=== PATIENT | male | born 1940 | race Caucasian/White ===

== ENCOUNTER 2017-07-20 17:45 | Emergency (ER) | payer SELFPAY ==
[~2017-07-20] VITALS: Ht 177.8 cm; Wt 74.0 kg
[2017-07-20 17:51] VITALS: BP 128/66; PULSE 81; RESP 20; TEMP 97.7; O2SAT 98
[2017-07-20 18:58] LABS: BACTERIA, URINE RARE /hpf; BILIRUBIN, URINE NEG (NEG); BLOOD, URINE SMALL (NEG); GLUCOSE,URINE NEG (NEG); KETONE, URINE NEG (NEG); NITRITE,URINE NEG (NEG); PH, URINE 5.5 (5.0-8.5); URINE COLOR YELLOW (YELLW/STRAW); URINE LEUKOCYTE ESTERASE LARGE (NEG)
[2017-07-20] MEDS ORDERED: AZITHROMYCIN PWD FOR SUSP 1 GM PACKET PO ONE (19:15)
[2017-07-20] MEDS ORDERED: LIDOCAINE HCL 1% PF 30 ML VIAL XX ONE (19:15)
--- NOTE | 2017-07-20 19:18 | PD ---
HPI Chief Complaint: Complaint Time Seen by Provider: 18:28 Travel History International Travel<30 days: No Contact w/Intl Traveler<30days: No Traveled to known affect area: No History of Present Illness HPI This patient complains of urethral discharge and urinary frequency and urethral irritation. He has history of gonorrhea. Duration is 3 days. Severity is moderate. No fever PFSH Social History Alcohol Use: No Tobacco Use: Yes Substance Use: No Allergies-Medications (Allergen,Severity, Reaction): Coded Allergies: No Known Drug Allergies (Verified Allergy, Unknown, 07/20/17) Reported Meds & Prescriptions Reported Meds & Active Scripts Active Active Prescriptions or Reported Medications Unobtainable Review of Systems General / Constitutional: No: Fever HENT: No: Headaches Cardiovascular: No: Chest Pain or Discomfort Respiratory: No: Cough Physical Exam Narrative GASTROINTESTINAL: Abdomen soft, non-tender, nondistended. Positive bowel sounds. No hepato-splenomegaly, or palpable masses. No guarding. SKIN: Focused skin assessment reveals no rash or ulcers. Skin is warm and dry. Palpation shows no induration or nodules. : No lesions seen. He does have yellow urethral discharge. Data Data Last Documented VS Vital Signs Date Time Temp Pulse Resp B/P (MAP) Pulse Ox O2 Delivery O2 Flow Rate FiO2 07/20/17 17:51 97.7 81 20 128/66 (86) 98 Orders Orders Urinalysis - C+S If Indicated (07/20/17 18:11) Urine Culture (07/20/17 18:00) Gc And Chlamydia Pcr (07/20/17 19:13) Ceftriaxone Inj (Rocephin Inj) (07/20/17 19:15) Lidocaine Pf 1% Inj (Xylocaine-Mpf 1% In (07/20/17 19:15) Azithromycin Powd Pack (Zithromax Powd P (07/20/17 19:15) Labs Laboratory Tests Test 07/20/17 18:00 Urine Color YELLOW Urine Turbidity HAZY Urine pH 5.5 Urine Specific [place] 1.012 Urine Protein TRACE mg/dL Urine Glucose (UA) NEG mg/dL Urine Ketones NEG mg/dL Urine Occult Blood SMALL Urine Nitrite NEG Urine Bilirubin NEG Urine Urobilinogen 2.0 MG/DL Urine Leukocyte Esterase LARGE Urine RBC 2 /hpf Urine WBC /hpf Urine Bacteria RARE /hpf Microscopic Urinalysis Comment CULTURE INDICATED MDM Medical Decision Making Medical Screen Exam Complete: Yes Emergency Medical Condition: Yes Medical Record Reviewed: Yes Differential Diagnosis Urethritis, UTI, cystitis Narrative Course I have reviewed the patient's electronic medical record. Urinalysis shows innumerable white cells I have ordered PCR of GC and chlamydia from urine which will take many hours I have empirically treated him with 1 g IM Rocephin and 2 g oral Zithromax [facility] Diagnosis Primary Impression: Urethritis Med/Other Pt SpecificInfo: Other Scripts Unable to Obtain Active Prescriptions or Reported Meds Disposition: 01 DISCHARGE HOME Condition: Stable Nahum Stevens MD July 20, 2017 19:18
== END 2017-07-20 19:35 | disposition home or self-care (01) ==
LOC: NEPD 17:45
DX: N34.2 Other urethritis (principal); Z72.0 Tobacco use
CPT/HCPCS: 81001; 87086; 87491; 87591; 96372; 99283; J0696